=== PATIENT | male | born 2000 | race Caucasian/White ===

== ENCOUNTER 2022-08-30 11:26 | Emergency (ER) | payer OTHER, BC, SELFPAY ==
--- NOTE | ~2022-08-30 | XR_ITS ---
EXAMINATION: XR knee LT min 4V DATE: 08/30/2022 12:49 INDICATION: Left knee pain TECHNIQUE: Anteroposterior, 2 oblique and crosstable lateral views of the left knee were obtained COMPARISON: None. FINDINGS: Alignment is normal. No fracture. Joint spaces appear normal on nonweightbearing imaging. No joint e ffusion/layering lipohemarthrosis. Mild prepatellar soft tissue swelling. No soft tissue gas or radio paque foreign bodies. IMPRESSION: 1. No left knee joint effusion or osseous abnormality.. Reviewed, dictated and finalized at location A. [employer]STATE [employer]ER
[2022-08-30 11:33] VITALS: BP 126/75; PULSE 83; RESP 18; TEMP 36.7; O2SAT 100
--- NOTE | 2022-08-30 13:51 | ED.WOUNDLAC ---
HPI - Wound/Laceration General Chief Complaint: Wound/Laceration Stated Complaint: chainsaw cut to left knee Time Seen by Provider: 08/30/22 11:39 Source: patient Mode of arrival: ambulatory Limitations: no limitations History of Present Illness HPI narrative: This is a 22-year-old male that presents to the emergency department for left knee laceration sustained just prior to arrival. Reports he was trimming a tree and sustained a laceration via a chainsaw. Reports bleeding and pain to the area. He is up-to-date on tetanus. Denies decreased range of motion or numbness. Related Data Allergies Allergy/AdvReac Type Severity Reaction Status Date / Time No Known Allergies Allergy Verified 08/30/22 11:37 Review of Systems Review of Systems: CONSTITUTIONAL: Denies fever SKIN: Reports laceration MUSCULOSKELETAL: Denies joint pain, or myalgia. NEUROLOGIC: Denies numbness All systems reviewed & are unremarkable except as noted in HPI and below PMFSH Past Medical History Medical History (Updated 08/30/22 @ 14:43 by Urvashi Teague PA-C) No active medical problems Social History Social History (Updated 08/30/22 @ 13:52 by Urvashi Teague PA-C) Smoking status: Current some day smoker Exam Narrative: GENERAL: Well-appearing, well-nourished, and in no acute distress. HEAD: Normocephalic, atraumatic. EYES: EOMI. EXTREMITIES: Normal range of motion in the knee. No edema. 6 cm irregular laceration into subcutaneous tissue over the left patella. Normal sensation. Normal DP pulse SKIN: Warm, dry, no rash. NEURO: No focal deficits. Alert and oriented x3. PSYCH: Normal mood and affect Course Vital Signs Vital signs: Vital Signs Temperature 98.0 F 08/30/22 11:33 Pulse Rate 83 08/30/22 11:33 Respiratory Rate 18 08/30/22 11:33 Blood Pressure 126/75 08/30/22 11:33 Pulse Oximetry 100 08/30/22 11:33 Oxygen Delivery Room Air 08/30/22 11:33 Temperature 98.0 F 08/30/22 11:33 Pulse Rate 83 08/30/22 11:33 Respiratory Rate 18 08/30/22 11:33 Blood Pressure 126/75 08/30/22 11:33 Pulse Oximetry 100 08/30/22 11:33 Oxygen Delivery Room Air 08/30/22 11:33 Procedures Laceration Laceration 1: Date: 08/30/22 Time: 14:40 Site: lower extremity Side (If applicable): left Size (cm): 6 Description: irregular Depth: simple, single layer Local Anesthetic: lidocaine 1% and with epi Amount of anesthesia used (mL): 5 Pre-repair: wound explored, irrigated extensively and minor debridement ====== Skin Level ====== Skin layer closed with: nylon Size (cm): 3-0 Number of sutures: 8 Technique: simple, interrupted ====== Subcutaneous Layer ====== ====== Muscle Layer ====== ====== Tendon Layer ====== MDM - Wound/Laceration MDM Narrative Medical decision making narrative: Patient presents to the emergency department after a laceration sustained via a chainsaw. He is neurovascularly intact. Laceration over the left patella without any bony or deep tissue involvement. This was thoroughly irrigated and closed with sutures. Reports he is up-to-date on his tetanus vaccination. Left knee x-ray without acute findings. He was educated on further wound care. He is to follow-up with primary care provider. He was given warnings to return to the ER Differential Diagnosis Differential diagnosis: Likely laceration, abrasion and avulsion of skin Imaging Data Radiologist's impression: ITS Impressions Knee X-Ray 08/30/22 12:54 IMPRESSION: 1. No left knee joint effusion or osseous abnormality.. Critical Care Time Critical Care Time Critical Care Time: No Discharge Plan Discharge Clinical Impression: Laceration Patient Disposition: Home, Self-Care Condition: Stable Instructions: Antibiotic Form, Care For Your Stitches (ED), Laceration (ED) Additional Inst
== END 2022-08-30 15:19 | disposition home or self-care (01) ==
PROVIDERS: Emergency Provider Physician Assistant; PCP Family Medicine
DX: S81.012A Laceration without foreign body, left knee, initial encounter (principal); F17.200 Nicotine dependence, unspecified, uncomplicated; W29.3XXA Contact with powered garden and outdoor hand tools and machinery, initial encounter
CPT/HCPCS: 12002; 73564; 99283